=== PATIENT | female | born 1980 | race Caucasian/White ===

== ENCOUNTER 2017-02-16 15:15 | Emergency (ER) | payer OTHER ==
[~2017-02-16] VITALS: Ht 154.9 cm; Wt 65.0 kg
[~2017-02-16 15:15] MED LIST: ALPRAZOLAM0.25 M2 PO; ATIVAN0.5 MG PO; BUSPAR10 MG PO; ESCITALOPRAM OX20 MG PO; LEXAPRO10 MG PO; PERCOCET 5/31 TABLET PO
[2017-02-16 16:24] LABS: HEMATOCRIT 34.9 % (36.0-46.0); MCHC 33.2 G/DL (30.0-36.0); MCV 90.2 FL (83-99); MEAN PLAT.VOLUME 8.7 uM^3 (9.5-12.4); PLATELET COUNT 301 K/uL (156-360); RBC DIS.WIDTH-CV 14.5 % (11.8-14.6); RBC DIS.WIDTH-SD 47.7 % (39-53); RED BLOOD COUNT 3.87 M/uL (3.80-5.20); WHITE BLOOD COUNT 9.8 K/uL (4.1-10.2)
[2017-02-16 16:35] LABS: CHLORIDE 99 mEq/L (99-109); POTASSIUM 3.7 mEq/L (3.7-5.4); SODIUM 136 mEq/L (136-147)
[2017-02-16 16:37] LABS: GLUCOSE 83 mg/dL (70-99)
[2017-02-16 16:38] LABS: ANION GAP 13 MEQ/L (2-14)
[2017-02-16 16:39] LABS: TOTAL BILIRUBIN 0.5 mg/dL (0.0-1.0)
[2017-02-16 16:39] LABS: ADD MIUA? NO; BILIRUBIN NEGATIVE; BLOOD NEGATIVE; COLOR COLORLESS ((YELLOW)); GLUCOSE (STRIP) NEGATIVE; KETONES 5; LEUKOCYTES NEGATIVE; NITRITE NEGATIVE; PROTEIN (STRIP) NEGATIVE; SPECIFIC GRAVITY 1.002 (1.000-1.030); UROBILINOGEN 0.2 MG/DL (0.2-1.0)
[2017-02-16 16:40] LABS: ALKALINE PHOSPHATASE 44 IU/L (3-129)
[2017-02-16 16:41] LABS: GFR ESTIMATE (CALCULATED) > 59 mL/min/
[2017-02-16 16:42] LABS: UREA NITROGEN (BUN) 10 mg/dL (9-23)
[2017-02-16 16:49] LABS: QUANTITATIVE HCG < 4.0 MIU/ML
[2017-02-16 17:06] VITALS: BP 141/89
== END 2017-02-16 17:30 | disposition home or self-care (01) ==
LOC: EME 15:15 → RME 15:15
PROVIDERS: Nurse Practitioner Family
DX: E86.0 Dehydration (principal); R19.7 Diarrhea, unspecified; F17.200 Nicotine dependence, unspecified, uncomplicated
CPT/HCPCS: 80053; 81003; 84702; 85027; 99281; 99283; J7030

== ENCOUNTER 2017-12-31 17:01 | Emergency (ER) | payer OTHER ==
[~2017-12-31] VITALS: Ht 157.5 cm; Wt 65.4 kg
[2017-12-31 17:58] LABS: HEMATOCRIT 31.2 % (36.0-46.0); HEMOGLOBIN 10.6 G/DL (11.9-15.5); MCV 82.3 FL (83-99); PLATELET COUNT 332 K/uL (156-360); RBC DIS.WIDTH-CV 15.7 % (11.8-14.6); RBC DIS.WIDTH-SD 47.6 % (39-53); RED BLOOD COUNT 3.79 M/uL (3.80-5.20)
[2017-12-31 18:09] LABS: CHLORIDE 97 mEq/L (99-109); POTASSIUM 4.7 mEq/L (3.7-5.4); SODIUM 133 mEq/L (136-147)
[2017-12-31 18:10] LABS: GLUCOSE 83 mg/dL (70-99)
[2017-12-31 18:14] LABS: CREATININE 0.7 mg/dL (0.6-1.3); GFR ESTIMATE (CALCULATED) > 59 mL/min/
[2017-12-31 18:15] LABS: UREA NITROGEN (BUN) 7 mg/dL (9-23)
[2017-12-31 18:19] LABS: TROP-I INTERPRETATION NEGATIVE; TROPONIN-I 0.03 ng/mL (0.0-0.30)
[2017-12-31 19:38] LABS: ALBUMIN 5.1 g/dL (3.2-4.8)
[2017-12-31 19:39] LABS: MAGNESIUM 2.5 mg/dL (1.3-2.7)
[2017-12-31 19:41] LABS: TOTAL PROTEIN 8.8 g/dL (6.4-8.3)
[2017-12-31 19:43] LABS: TOTAL BILIRUBIN 1.3 mg/dL (0.0-1.0)
[2017-12-31 19:44] LABS: ALKALINE PHOSPHATASE 62 IU/L (3-129); SERUM ETHYL ALCOHOL < 10 mg/dL
[2017-12-31 19:46] LABS: AST (GOT) 52 IU/L (2-34); DIRECT BILIRUBIN 0.4 mg/dL (0.0-0.3)
[2017-12-31 19:47] LABS: ALT (GPT) 28 IU/L (3-49)
[2017-12-31 19:48] LABS: LIPASE 51 U/L (1.0-51.0)
[2017-12-31 20:04] LABS: APPEARANCE CLEAR ((CLEAR)); BILIRUBIN NEGATIVE; BLOOD SMALL; COLOR COLORLESS ((YELLOW)); GLUCOSE (STRIP) NEGATIVE; KETONES 20; LEUKOCYTES NEGATIVE; NITRITE NEGATIVE; PROTEIN (STRIP) NEGATIVE; SPECIFIC GRAVITY 1.002 (1.000-1.030); UROBILINOGEN 0.2 MG/DL (0.2-1.0)
[2017-12-31 20:07] LABS: BACTERIA NONE SEEN /HPF; EPITHELIAL CELLS NONE SEEN /HPF; MUCUS NONE SEEN /LPF; RED BLOOD CELLS NONE SEEN /HPF (0-5); WHITE BLOOD CELLS NONE SEEN /HPF (0-5)
[2017-12-31 20:12] LABS: AMPHETAMINE NEGATIVE (500 ng/mL); BARBITURATES NEGATIVE (200 ng/mL); BENZODIAZEPINES NEGATIVE (150 ng/mL); BUPRENORPHINE NEGATIVE (10 ng/mL); COCAINE NEGATIVE (150 ng/mL); METHADONE NEGATIVE (200 ng/mL); METHAMPHETAMINE NEGATIVE (500 ng/mL); OPIATES (MORPHINE) NEGATIVE (100 ng/mL); OXYCODONE NEGATIVE (100 ng/mL); PHENCYCLIDINE NEGATIVE (25 ng/mL); PROPOXYPHENE NEGATIVE (300 ng/mL); THC CANNABINOIDS NEGATIVE (50 ng/mL); TRICYCLIC ANTIDEPRESSANTS NEGATIVE (300 ng/mL)
[2017-12-31] MEDS ORDERED: LIBRIUM25 MG PO (21:41)
[2017-12-31 22:14] VITALS: BP 106/63
[2018-01-01 10:16] LABS: HEPATITIS B SURFACE ANTIGEN Nonreactive; HEPATITIS C ANTIBODY Nonreactive
[2018-01-01 10:17] LABS: ANTI-HEPATITIS A VIRUS (IGM) Nonreactive
[2018-01-01 10:18] LABS: ANTI-HEPATITIS B CORE (IGM) Nonreactive
== END 2017-12-31 22:16 | disposition home or self-care (01) ==
LOC: EME 17:01
PROVIDERS: Emergency Medicine
DX: F10.239 Alcohol dependence with withdrawal, unspecified (principal); R07.9 Chest pain, unspecified; R23.2 Flushing; Y90.0 Blood alcohol level of less than 20 mg/100 ml; F32.9 Major depressive disorder, single episode, unspecified; F41.9 Anxiety disorder, unspecified; F17.200 Nicotine dependence, unspecified, uncomplicated
CPT/HCPCS: 71046; 80048; 80074; 80076; 81003; 82247; 82248; 83690; 83735; 84484; 85027; 87502; 93005; 99281; 99285; G0480; J2060; J7030